=== PATIENT | male | born 1960 | race Hispanic/Latino ===

== ENCOUNTER 2020-12-06 10:04 | Emergency (ER) | payer SELFPAY ==
[2020-12-06] MEDS ORDERED: LORazepam 2 MG/ML VIAL IM PRN (11:44)
[2020-12-06] MEDS ORDERED: diphenhydrAMINE 50 MG/ML VIAL IM PRN (11:44)
[2020-12-06] MEDS ORDERED: LORazepam 1 MG TAB PO ONE (11:44)
[2020-12-06] MEDS ORDERED: HALOPERIDOL LACTATE 5 MG/1 ML INJ IM PRN (11:44)
--- NOTE | 2020-12-06 11:48 | Emergency Department Report ---
HPI - General Chief Complaint: Psych Time Seen by Provider: 12/06/20 11:11 - [facility] HPI: Room 12E The patient is a 60-year-old male present with a chief complaint of suicidal ideation. The patient states he has been off of his psychiatric medication and has wanted to hurt himself. When asked how long this been going on for the patient replies "a wild" but does not give a specific timeframe. Patient states the thoughts come and go. The patient states "I don't want to live anymore." When asked if he had done anything to harm himself the patient states he just had thoughts of wanting to jump off a building or in front of traffic. ED Past Medical Hx - Past Medical History Previous Medical History?: No Hx Psychiatric Treatment: Yes (Depression) - Surgical History Past Surgical History?: No - Family History Family history: no significant - Social History Smoking Status: Current Every Day Smoker (1.5 pack/day) Substance Use Type: Alcohol (Occasional), Marijuana ED Review of Systems ROS: Stated complaint: EVALUATION (THREATING) Other details as noted in HPI Constitutional: no symptoms reported Eyes: denies: eye pain ENT: denies: throat pain Respiratory: no symptoms reported Cardiovascular: denies: chest pain Endocrine: no symptoms reported Gastrointestinal: denies: abdominal pain Genitourinary: denies: dysuria Musculoskeletal: denies: back pain Neurological: denies: headache Psychiatric: depression, suicidal thoughts Physical Exam - Physical Exam Vital Signs: Vital Signs 12/06/20 10:29 Temperature 98.3 F Pulse Rate 87 Respiratory 18 Rate Blood Pressure 126/92 [Right] O2 Sat by Pulse 98 Oximetry Physical Exam: GENERAL: The patient is well-developed well-nourished male sitting in chair fidgeting but not appearing to be in acute distress. [] HEENT: Normocephalic. Atraumatic. Extraocular motions are intact. Patient has moist mucous membranes. NECK: Supple. Trachea midline CHEST/LUNGS: Clear to auscultation. There is no respiratory distress noted. HEART/CARDIOVASCULAR: Regular. There is no tachycardia. There is no gallop rub or murmur. ABDOMEN: Abdomen is soft, nontender. Patient has normal bowel sounds. There is no abdominal distention. SKIN: There is no rash. There is no edema. There is no diaphoresis. NEURO: The patient is awake, alert, and oriented. The patient is cooperative. The patient has no focal neurologic deficits. The patient has normal speech MUSCULOSKELETAL: There is no evidence of acute injury. ED Course Vital Signs 12/06/20 10:29 Temperature 98.3 F Pulse Rate 87 Respiratory 18 Rate Blood Pressure 126/92 [Right] O2 Sat by Pulse 98 Oximetry ED Medical Decision Making - Lab Data Result diagrams: 12/06/20 11:48 12/06/20 11:48 Laboratory Tests 12/06/20 12/06/20 12/06/20 11:48 11:48 11:48 WBC 9.3 RBC 4.73 Hgb 15.6 H Hct 44.6 MCV 94 MCH 33 H MCHC 35 H RDW 14.2 Plt Count 302 Lymph % (Auto) 28.7 [place] % (Auto) 3.7 Eos % (Auto) 2.2 Baso % (Auto) 1.0 Lymph # (Auto) 2.7 [place] # (Auto) 0.3 Eos # (Auto) 0.2 Baso # (Auto) 0.1 Seg Neutrophils % 64.4 Seg Neutrophils # 6.0 Sodium 138 Potassium 3.6 Chloride 100.7 Carbon Dioxide 24 Anion Gap 17 BUN 8 L Creatinine 0.9 Estimated GFR > 60 BUN/Creatinine Ratio 9 Glucose 125 H Calcium 8.8 Total Bilirubin 0.30 AST 16 ALT 12 Alkaline Phosphatase 67 Total Protein 7.0 Albumin 3.8 L Albumin/Globulin Ratio 1.2 Urine Color Urine Turbidity Urine pH Ur Specific [place] Urine Protein Urine Glucose (UA) Urine Ketones Urine Blood Urine Nitrite Urine Bilirubin Urine Urobilinogen Ur Leukocyte Esterase Urine WBC (Auto) Urine RBC (Auto) Urine Mucus Salicylates < 0.3 L Urine Opiates Screen Urine Methadone Screen Acetaminophen Ur Barbiturates Screen Ur Phencyclidine Scrn U Benzodiazepines Scrn Urine Cocaine Screen Plasma/Serum Alcohol 12/06/20 12/06/20 12/06/20 11:48 11:48 Unknown WBC RBC Hgb Hct MCV MCH MCHC RDW Plt Count Lymph % (Auto) [place] % (Auto) Eos % (Auto) Baso % (Auto) Lymph # (Auto) [place] # (Auto) Eos # (Auto) Baso # (Auto) Seg Neutrophils % Seg Neutrophils # Sodium Potassium Chloride Carbon Dioxide Anion Gap BUN Creatinine Estimated GFR BUN/Creatinine Ratio Glucose Calcium Total Bilirubin AST ALT Alkaline Phosphatase Total Protein Albumin Albumin/Globulin Ratio Urine Color Yellow Urine Turbidity Clear Urine pH 6.0 Ur Specific [place] 1.009 Urine Protein <15 mg/dl Urine Glucose (UA) Neg Urine Ketones Neg Urine Blood Neg Urine Nitrite Neg Urine Bilirubin Neg Urine Urobilinogen < 2.0 Ur Leukocyte Esterase Neg Urine WBC (Auto) < 1.0 Urine RBC (Auto) 1.0 Urine Mucus Few Salicylates Urine Opiates Screen Urine Methadone Screen Acetaminophen 5.0 L Ur Barbiturates Screen Ur Phencyclidine Scrn U Benzodiazepines Scrn Urine Cocaine Screen Plasma/Serum Alcohol 0.16 H 12/06/20 Unknown WBC RBC Hgb Hct MCV MCH MCHC RDW Plt Count Lymph % (Auto) [place] % (Auto) Eos % (Auto) Baso % (Auto) Lymph # (Auto) [place] # (Auto) Eos # (Auto) Baso # (Auto) Seg Neutrophils % Seg Neutrophils # Sodium Potassium Chloride Carbon Dioxide Anion Gap BUN Creatinine Estimated GFR BUN/Creatinine Ratio Glucose Calcium Total Bilirubin AST ALT Alkaline Phosphatase Total Protein Albumin Albumin/Globulin Ratio Urine Color Urine Turbidity Urine pH Ur Specific [place] Urine Protein Urine Glucose (UA) Urine Ketones Urine Blood Urine Nitrite Urine Bilirubin Urine Urobilinogen Ur Leukocyte Esterase Urine WBC (Auto) Urine RBC (Auto) Urine Mucus Salicylates Urine Opiates Screen Negative Urine Methadone Screen Negative Acetaminophen Ur Barbiturates Screen Negative Ur Phencyclidine Scrn Negative U Benzodiazepines Scrn Negative Urine Cocaine Screen Negative Plasma/Serum Alcohol - Differential Diagnosis Suicidal ideation Critical care attestation.: If time is entered above; I have spent that time in minutes in the direct care of this critically ill patient, excluding procedure time. ED Disposition Clinical Impression: Suicidal ideation Disposition: [id number]/TX-[id number] PSY HOSP/PSY UNIT Is pt being admited?: No Does the pt Need Aspirin: No Condition: Stable Referrals: PRIMARY CARE, [Primary Care Provider] - 3-5 Days Time of Disposition: 14:24 (Awaiting acceptance)
[2020-12-06 11:58] LABS: Basophils # (Auto) 0.1 K/mm3 (0.0-0.1); Eosinophils # (Auto) 0.2 K/mm3 (0.0-0.4); Eosinophils % (Auto) 2.2 % (0.0-4.3); Hematocrit 44.6 % (35.5-45.6); Hemoglobin 15.6 gm/dl (11.8-15.2); Lymphocytes # (Auto) 2.7 K/mm3 (1.2-5.4); Lymphocytes % (Auto) 28.7 % (13.4-35.0); Mean Corpuscular HGB Conc 35 % (32-34); Mean Corpuscular Volume 94 fl (84-94); Monocytes # (Auto) 0.3 K/mm3 (0.0-0.8); Monocytes % (Auto) 3.7 % (0.0-7.3); Platelet Count 302 K/mm3 (140-440); Red Blood Count 4.73 M/mm3 (3.65-5.03); Red Cell Distribution Width 14.2 % (13.2-15.2)
[2020-12-06 12:32] LABS: Bilirubin,Urine NEG (Negative); Blood,Urine NEG (Negative); Color,Urine Yellow (Yellow); Mucus,Urine FEW /HPF; Protein,Urine <15 mg/dL mg/dL (Negative); Urobilinogen,Urine < 2.0 mg/dL (<2.0); WBC,Urine < 1.0 /HPF (0.0-6.0)
[2020-12-06 12:33] LABS: Alanine Aminotransferase 12 units/L (7-56); Albumin 3.8 g/dL (3.9-5); BUN/Creatinine Ratio 9; Blood Urea Nitrogen 8 mg/dL (9-20); Calcium 8.8 mg/dL (8.4-10.2); Hemolysis Index 22
[2020-12-06 13:48] LABS: Benzodiazepines Screen,Urine Negative; Cocaine Screen,Urine Negative; Methadone Screen,Urine Negative; Opiate Screen,Urine Negative
[2020-12-06 14:51] LABS: Amphetamine Screen,Urine Positive
[2020-12-06 15:04] LABS: Cannabinoid Screen,Urine PRESUMPTIVE POSITIVE
[2020-12-07] MEDS ORDERED: traZODone 50 MG TAB PO ONE ×2 (02:28→02:31)
[2020-12-07 10:03] VITALS: BP 153/91
--- NOTE | 2020-12-07 11:04 | Consultation ---
History of Present Illness - Reason for Consult Consult date: 12/07/20 Reason for consult: MHE Requesting physician: BEN LYMAN - History of Present Psychiatric Illness Per ED Provider: The patient is a 60-year-old male present with a chief complaint of suicidal ideation. The patient states he has been off of his psychiatric medication and has wanted to hurt himself. When asked how long this been going on for the patient replies "a wild" but does not give a specific timeframe. Patient states the thoughts come and go. The patient states "I don't want to live anymore." When asked if he had done anything to harm himself the patient states he just had thoughts of wanting to jump off a building or in front of traffic. PSYCH HPI Patient is a 60-year-old single, currently unemployed and homeless male with past psychiatric history of depression and alcohol use disorder who presented to the ED intoxicated with chief complaint of suicidal ideation. Per patient he is currently living in a sober living facility, and had to leave the sober living facility because he had drunk alcohol which is against their rules. Patient reported he had evaluated well because he was having the urge to drink, so he could not stay because he was unable to get alcohol on the facility. Patient endorses that he drinks because he is depressed, and is depressed because he is currently unable to stay sober and he drinks, and has been unable to separate his depression and alcohol as an individualized treatment. Patient states that he wishes to go back to sober living facility but he was told that he needs to be medically cleared, is about to be sure is not going to withdrawals before he could come back. She admits to having family in [place], but states that his oldest daughter is leaving the state, and his mom just filed for divorce from her . PAST PSYCHIATRIC HISTORY Diagnoses: Depression Suicide attempts or Self-harm behavior: Yes Prior psychiatric hospitalizations: Yes Substance Abuse history: Alcohol Previous psychiatric medications tried: Noncompliant Outpatient treatment: None reported PAST MEDICAL HISTORY: None report Family Psychiatric History: None reported or documented SOCIAL HISTORY Marital Status: Single Living Arrangements: Home Employment Status: None Access to guns/weapons: None report Education: College drop History of Abuse: None report Legal History: Yes REVIEW OF SYSTEMS Constitutional: Negative for weight loss ENT: Negative for stridor Respiratory: Negative for cough or hemoptysis All other systems reviewed and are negative MENTAL STATUS EXAMINATION General Appearance and Behavior: Age appropriate, good hygiene, wearing appropriate clothes, good eye contact, cooperative polite with questioning. Cooperation: Participating/engaged Psychomotor Behavior: unremarkable and within normal limits Mood: "Not so good" Affect and affective range: congruent with mood Thought Process: Fluent/Logical, Thought Content: Within reality, Speech: Normal volume, Regular rate and rhythm, Intellectual Functioning: Average Suicidal Ideation: Denies SI Homicidal Ideation: Denies HI Impulse Control: Unimpaired Insight and Judgment: Normal insight and judgment, Memory: Normal, Attention: Normal, Orientation: Alert, oriented, Assessment and Plan - Psychiatric problem (1) Alcohol use disorder History of depression Current Visit: Yes Status: Acute Treatment Plan Discussed with social media project manager about plans for patient to return back to sober living facility, patient Walker reported this depends on the facility rules some have a 30-day readmission after alcohol use in violation of the policy. In this case patient states he can go back if he is medically MEDICATIONS: Risks, benefits and alternatives of medications discussed with the patient, questions answered and consent obtained from patient. PSYCHOTHERAPY: Supportive psychotherapy provided MEDICAL: Per primary team DELIRIUM PRECAUTIONS: Please re-orient patient frequently, keep lights on during the day, and minimize benzodiazepines and opiates as these medications could worsen patient's confusion. SPINDLE CARVER: DISPOSITION: Do Not Recommend acute inpatient psychiatric hospitalization at this time. Case discussed with Dr. Connelly who agrees with current disposition LEGAL STATUS: 1013 rescinded FOLLOW-UP: Will sign off Thank you for the consult. Please contact with any questions and/or concerns. Medications and Allergies Allergies Allergy/AdvReac Type Severity Reaction Status Date / Time No Known Allergies Allergy Unverified 12/06/20 12:55 Home Medications Medication Instructions Recorded Confirmed Last Taken Type Sertraline [Zoloft] 50 mg PO QDAY #30 tablet 12/07/20 Unknown Rx traZODone [Desyrel] 50 mg PO QHS #30 tab 12/07/20 Unknown Rx Active Meds: Active Medications Diphenhydramine HCl (Diphenhydramine 50 Mg/Ml Vial) 50 mg IM Q6H PRN PRN Reason: Agitation Haloperidol Lactate (Haloperidol Lactate 5 Mg/1 Ml Inj) 10 mg IM Q8H PRN PRN Reason: Agitation Lorazepam (Lorazepam 2 Mg/Ml Vial) 2 mg IM Q8H PRN PRN Reason: Agitation Last Admin: 12/07/20 03:59 Dose: 2 mg Documented by: Mental Status Exam - Vital signs Last Vital Signs Temp 97.9 F 12/07/20 09:00 Pulse 80 12/07/20 09:00 Resp 18 12/07/20 09:00 BP 153/91 12/07/20 09:00 Pulse Ox 97 12/07/20 09:00 Results Result Diagrams: 12/06/20 11:48 12/06/20 11:48 Abnormal lab results 12/06/20 12/06/20 12/06/20 Range/Units 11:48 11:48 11:48 Hgb 15.6 H (11.8-15.2) gm/dl MCH 33 H (28-32) pg MCHC 35 H (32-34) % BUN 8 L (9-20) mg/dL Glucose 125 H (75-100) mg/dL Albumin 3.8 L (3.9-5) g/dL Salicylates < 0.3 L (2.8-20.0) mg/dL Acetaminophen (10.0-30.0) ug/mL Plasma/Serum Alcohol (0-0.07) % 12/06/20 12/06/20 Range/Units 11:48 11:48 Hgb (11.8-15.2) gm/dl MCH (28-32) pg MCHC (32-34) % BUN (9-20) mg/dL Glucose (75-100) mg/dL Albumin (3.9-5) g/dL Salicylates (2.8-20.0) mg/dL Acetaminophen 5.0 L (10.0-30.0) ug/mL Plasma/Serum Alcohol 0.16 H (0-0.07) % All other labs normal. Assessment and Plan - Psychiatric problem (1) Alcohol use disorder Current Visit: Yes Status: Acute
== END 2020-12-07 15:38 | disposition home or self-care (01) ==
LOC: ED 10:04
DX: R45.851 Suicidal ideations (principal); Z20.822 Contact with and (suspected) exposure to COVID-19; F32.9 Major depressive disorder, single episode, unspecified; F17.200 Nicotine dependence, unspecified, uncomplicated; F12.10 Cannabis abuse, uncomplicated
CPT/HCPCS: 36415; 80053; 80307; 81001; 85025; 96372; 99284; J2060; U0003; 80320; G0480

== ENCOUNTER 2021-12-30 12:54 | Emergency (ER) | payer SELFPAY ==
[2021-12-30 15:22] LABS: Basophils % (Auto) 0.7 % (0.0-1.8); Eosinophils # (Auto) 0.1 K/mm3 (0.0-0.4); Eosinophils % (Auto) 1.8 % (0.0-4.3); Hematocrit 48.1 % (35.5-45.6); Hemoglobin 16.9 gm/dl (11.8-15.2); Lymphocytes # (Auto) 2.2 K/mm3 (1.2-5.4); Lymphocytes % (Auto) 44.1 % (13.4-35.0); Mean Corpuscular HGB Conc 35 % (32-34); Mean Corpuscular Volume 92 fl (84-94); Monocytes # (Auto) 0.4 K/mm3 (0.0-0.8); Monocytes % (Auto) 7.4 % (0.0-7.3); Platelet Count 197 K/mm3 (140-440); Red Blood Count 5.23 M/mm3 (3.65-5.03); Red Cell Distribution Width 14.7 % (13.2-15.2)
[2021-12-30 15:57] LABS: Alanine Aminotransferase 59 units/L (7-56); Albumin 4.8 g/dL (3.9-5); BUN/Creatinine Ratio 16; Blood Urea Nitrogen 13 mg/dL (9-20); Calcium 8.9 mg/dL (8.4-10.2); Hemolysis Index 6
[2021-12-31] MEDS ORDERED: THIAMINE 100 MG, FOLIC ACID 1 MG, MULTIPLE VITAMIN INJ, ADULT 10 ML in SODIUM CHLORIDE ... IV ONE (03:21)
[2021-12-31] MEDS ORDERED: SODIUM CHLORIDE 0.9% 1000 ML 1,000 ML IV ONE (03:22)
--- NOTE | 2021-12-31 03:26 | Emergency Department Report ---
ED Alcohol HPI - General Chief Complaint: Alcohol Stated Complaint: ETOH Time Seen by Provider: 12/31/21 02:56 Source: EMS Mode of arrival: Stretcher Limitations: No Limitations - History of Present Illness Initial Comments: 61-year-old alcoholic male who presents wanting detox. Patient reports last alcohol drink few hours ago. Denies any history of DT. Patient denies any chest pain or palpitation. Patient denies any other modifying or associated factors. - Related Data Previous Rx's Medication Instructions Recorded Last Taken Type Sertraline [Zoloft] 50 mg PO QDAY #30 tablet 12/07/20 Unknown Rx traZODone [Desyrel] 50 mg PO QHS #30 tab 12/07/20 Unknown Rx Allergies Allergy/AdvReac Type Severity Reaction Status Date / Time No Known Allergies Allergy Verified 12/31/21 11:39 ED Review of Systems ROS: Stated complaint: ETOH Other details as noted in HPI Comment: All other systems reviewed and negative Neurological: other (alcohol intoxication ) ED Past Medical Hx - Past Medical History Hx Psychiatric Treatment: Yes (Depression) - Social History Smoking Status: Current Every Day Smoker (1.5 pack/day) Substance Use Type: Alcohol (Occasional), Marijuana - Medications Home Medications: Home Medications Medication Instructions Recorded Confirmed Last Taken Type Sertraline [Zoloft] 50 mg PO QDAY #30 tablet 12/07/20 12/31/21 Unknown Rx traZODone [Desyrel] 50 mg PO QHS #30 tab 12/07/20 12/31/21 Unknown Rx ED Physical Exam - General Limitations: No Limitations General appearance: alert, in no apparent distress, appears intoxicated - Head Head exam: Present: normal inspection - Eye Eye exam: Present: normal appearance Pupils: Present: normal accommodation - ENT ENT exam: Present: normal orophraynx, mucous membranes moist - Neck Neck exam: Present: normal inspection. Absent: tenderness, meningismus - Respiratory Respiratory exam: Present: normal lung sounds bilaterally. Absent: respiratory distress, accessory muscle use - Cardiovascular Cardiovascular Exam: Present: regular rate, normal rhythm, normal heart sounds - GI/Abdominal GI/Abdominal exam: Present: soft, normal bowel sounds. Absent: tenderness - Back Exam Back exam: Present: normal inspection - Neurological Exam Neurological exam: Present: alert, oriented X3 - Psychiatric Psychiatric exam: Present: normal affect, normal mood - Skin Skin exam: Present: warm, normal color ED Course Vital Signs 12/30/21 12/30/21 12/31/21 13:06 14:53 02:21 Temperature 98.7 F Pulse Rate 78 95 H 80 Respiratory 18 17 20 Rate Blood Pressure Blood Pressure 134/85 127/77 [Left] O2 Sat by Pulse 97 99 93 Oximetry 12/31/21 12/31/21 11:38 12:12 Temperature 98.8 F Pulse Rate 83 Respiratory 20 Rate Blood Pressure 149/89 Blood Pressure 128/75 [Left] O2 Sat by Pulse 98 97 Oximetry - Reevaluation(s) Reevaluation #1: 12/31/21 03:28 here with alcohol intoxication-- will go ahead and hydrate with banana bag and ivf ns 1L bolus x 1-- and order routine labs -- Reevaluation #2: 12/31/21 06:03 Pt is signed to Dr Petersen while getting his banana. Labs reviewed with elevated H&H 16.9/48.1 likely as a result of COPD and smoking, also noted with slightly elevated AST/ALT 58/59 but normal T bili likely as a result of his chronic alcohol-- pt is lying down on his bed comfortable getting is fluid. ED Medical Decision Making - Lab Data Result diagrams: 12/30/21 15:02 12/30/21 15:02 Critical care attestation.: If time is entered above; I have spent that time in minutes in the direct care of this critically ill patient, excluding procedure time. ED Disposition Clinical Impression: Alcohol intoxication Qualifiers: Complication of substance-induced condition: with unspecified complication Qualified Code(s): F10.929 - Alcohol use, unspecified with intoxication, unspecified Disposition: 01 HOME / SELF CARE / HOMELESS Is pt being admited?: No Does the pt Need Aspirin: No Condition: Stable Additional Instructions: Follow up with the [facility] in 1 - 2 days (See the address and phone # below). Return to the ER if your symptoms worsen. Address: [address] [place] [id number] Referrals: PRIMARY CARE, [Primary Care Provider] - 3-5 Days
[2021-12-31] MEDS ORDERED: ONDANSETRON 4 MG/2 ML INJ IV ONE (11:46)
--- NOTE | 2021-12-31 11:53 | Event Note ---
Date: 12/31/21 (Addendum) Patient care transferred to pa from Dr. Moreira. Patient here 2/2 alcohol abuse and intoxicated. Seeking help. Denies SI, HI, hallucinations. No delusions on exam. No signs of withdrawals. Patient had been seen drinking more while in the ER. ED Medical Decision Making - Lab Data Result diagrams: 12/30/21 15:02 12/30/21 15:02 Laboratory Tests 12/30/21 12/30/21 12/31/21 15:02 15:02 03:44 WBC 5.0 RBC 5.23 H Hgb 16.9 H Hct 48.1 H MCV 92 MCH 32 MCHC 35 H RDW 14.7 Plt Count 197 Lymph % (Auto) 44.1 H [place] % (Auto) 7.4 H Eos % (Auto) 1.8 Baso % (Auto) 0.7 Lymph # (Auto) 2.2 [place] # (Auto) 0.4 Eos # (Auto) 0.1 Baso # (Auto) 0.0 Seg Neutrophils % 46.0 Seg Neutrophils # 2.3 Sodium 140 Potassium 3.7 Chloride 97.6 L Carbon Dioxide 27 Anion Gap 19 BUN 13 Creatinine 0.8 Estimated GFR > 60 BUN/Creatinine Ratio 16 Glucose 130 H Calcium 8.9 Total Bilirubin 0.30 AST 58 H ALT 59 H Alkaline Phosphatase 87 Total Protein 7.1 Albumin 4.8 Albumin/Globulin Ratio 2.1 TSH 0.664 Salicylates Acetaminophen Plasma/Serum Alcohol 12/31/21 12/31/21 12/31/21 03:44 03:44 03:44 WBC RBC Hgb Hct MCV MCH MCHC RDW Plt Count Lymph % (Auto) [place] % (Auto) Eos % (Auto) Baso % (Auto) Lymph # (Auto) [place] # (Auto) Eos # (Auto) Baso # (Auto) Seg Neutrophils % Seg Neutrophils # Sodium Potassium Chloride Carbon Dioxide Anion Gap BUN Creatinine Estimated GFR BUN/Creatinine Ratio Glucose Calcium Total Bilirubin AST ALT Alkaline Phosphatase Total Protein Albumin Albumin/Globulin Ratio TSH Salicylates < 0.3 L Acetaminophen 5.0 L Plasma/Serum Alcohol 0.39 H - Medical Decision Making Patient with GCS 15/15 @ 12:00 noon. Patient able to ambulate without support. Will refer patient to outpatient alcohol dependence treatment center. IMPRESSION: 1. Alcohol intoxication ED Disposition Disposition: 01 HOME / SELF CARE / HOMELESS Is pt being admited?: No Does the pt Need Aspirin: No Condition: Stable Additional Instructions: Follow up with the [facility] in 1 - 2 days (See the address and phone # below). Return to the ER if your symptoms worsen. Address: [address] [place] [id number] Referrals: PRIMARY CARE, [Primary Care Provider] - 3-5 Days
[2021-12-31 12:14] VITALS: BP 149/89
== END 2021-12-31 12:45 | disposition home or self-care (01) ==
LOC: ED 12:54
DX: F10.129 Alcohol abuse with intoxication, unspecified (principal); F32.9 Major depressive disorder, single episode, unspecified; F17.200 Nicotine dependence, unspecified, uncomplicated; Z72.89 Other problems related to lifestyle; Z79.899 Other long term (current) drug therapy; Y90.9 Presence of alcohol in blood, level not specified
CPT/HCPCS: 36415; 80053; 84443; 85025; 96361; 96365; 96366; 96375; 99284; J2405; J3411; J3490; J7030; 80320; G0480

== ENCOUNTER 2022-03-01 08:45 | Emergency (ER) | payer SELFPAY ==
[2022-03-01] MEDS ORDERED: THIAMINE 200 MG/2 ML VIAL IM STA (09:37)
[2022-03-01] MEDS ORDERED: LORazepam 2 MG/ML VIAL IV ONE (09:45)
[2022-03-01] MEDS ORDERED: SODIUM CHLORIDE 0.9% 1000 ML 1,000 ML IV ONE (09:46)
[2022-03-01] MEDS: FOLIC ACID 1 MG TAB PO STA (09:51)
[2022-03-01 10:35] LABS: Basophils % (Auto) 0.7 % (0.0-1.8); Eosinophils % (Auto) 0.9 % (0.0-4.3); Hematocrit 45.4 % (35.5-45.6); Hemoglobin 15.5 gm/dl (11.8-15.2); Lymphocytes # (Auto) 1.2 K/mm3 (1.2-5.4); Lymphocytes % (Auto) 28.7 % (13.4-35.0); Mean Corpuscular HGB Conc 34 % (32-34); Mean Corpuscular Volume 94 fl (84-94); Monocytes # (Auto) 0.5 K/mm3 (0.0-0.8); Monocytes % (Auto) 10.8 % (0.0-7.3); Platelet Count 170 K/mm3 (140-440); Red Blood Count 4.82 M/mm3 (3.65-5.03); Red Cell Distribution Width 16.2 % (13.2-15.2)
[2022-03-01] MEDS ORDERED: FAMOTIDINE 20 MG/2 ML INJ IV ONE (10:47)
[2022-03-01] MEDS ORDERED: ONDANSETRON 4 MG/2 ML INJ IV ONE (10:47)
[2022-03-01 10:59] LABS: Alanine Aminotransferase 96 units/L (7-56); Albumin 4.4 g/dL (3.9-5); BUN/Creatinine Ratio 9; Blood Urea Nitrogen 7 mg/dL (9-20); Calcium 9.1 mg/dL (8.4-10.2); Hemolysis Index 3
--- NOTE | 2022-03-01 11:22 | XRay Report ---
CHEST 1 VIEW 03/01/2022 10:07 AM INDICATION / CLINICAL INFORMATION: weakness, cough, alcohol withdrawal. COMPARISON: None available. FINDINGS: SUPPORT DEVICES: None. HEART / MEDIASTINUM: No significant abnormality. LUNGS / PLEURA: Lung volumes are reduced. No other significant pulmonary abnormality. No significant pleural effusion. No pneumothorax. ADDITIONAL FINDINGS: No significant additional findings. IMPRESSION: 1. No acute abnormality of the chest. Signer Name: Pedro Ross MD Signed: 03/01/2022 11:17 AM Workstation Name: [id number]
[2022-03-01] MEDS ORDERED: chlordiazePOXIDE 25 MG CAP PO ONE (12:55)
--- NOTE | 2022-03-01 13:15 | Emergency Department Report ---
ED Alcohol HPI - General Chief Complaint: Alcohol Stated Complaint: SARAH Time Seen by Provider: 03/01/22 09:31 Source: patient, EMS Mode of arrival: Stretcher Limitations: No Limitations - History of Present Illness MD Complaint: alcohol withdrawal Time Since Last Drink: 800 Chronic Alcohol Use: Yes Previous Visits for Alcohol Intoxication?: Yes Recent Trauma: No Associated Symptoms: nausea Treatments Prior to Arrival: other (pt drank alcohol prior to arrival) - Related Data Previous Rx's Medication Instructions Recorded Last Taken Type Sertraline [Zoloft] 50 mg PO QDAY #30 tablet 12/07/20 Unknown Rx traZODone [Desyrel] 50 mg PO QHS #30 tab 12/07/20 Unknown Rx Ondansetron [Zofran Odt] 4 mg PO Q8HR #12 tab.rapdis 03/01/22 Unknown Rx Allergies Allergy/AdvReac Type Severity Reaction Status Date / Time No Known Allergies Allergy Verified 12/31/21 11:39 ED Review of Systems ROS: Stated complaint: SARAH Other details as noted in HPI Comment: All other systems reviewed and negative Constitutional: no symptoms reported Eyes: as per HPI ENT: as per HPI Respiratory: no symptoms reported Cardiovascular: as per HPI Endocrine: see HPI Gastrointestinal: as per HPI, nausea Genitourinary: as per HPI Musculoskeletal: as per HPI Skin: as per HPI Neurological: as per HPI Psychiatric: as per HPI Hematological/Lymphatic: other ED Past Medical Hx - Past Medical History Previous Medical History?: No Hx Psychiatric Treatment: Yes (Depression) - Surgical History Past Surgical History?: No Hx Coronary Stent: No Hx Open Heart Surgery: No Hx Internal Defibrillator: No Hx Appendectomy: No Hx Breast Surgery: No (not applicable) - Family History Family history: no significant - Social History Smoking Status: Current Every Day Smoker Substance Use Type: Alcohol - Medications Home Medications: Home Medications Medication Instructions Recorded Confirmed Last Taken Type Sertraline [Zoloft] 50 mg PO QDAY #30 tablet 12/07/20 12/31/21 Unknown Rx traZODone [Desyrel] 50 mg PO QHS #30 tab 12/07/20 12/31/21 Unknown Rx Ondansetron [Zofran Odt] 4 mg PO Q8HR #12 tab.rapdis 03/01/22 Unknown Rx ED Physical Exam - General Limitations: No Limitations General appearance: alert, other (Adult male, strong smell of alcohol on breath, comfortable appearing, no drooling no stridor, disheveled) - Head Head exam: Present: atraumatic, normocephalic, normal inspection - Eye Eye exam: Present: normal appearance, PERRL, EOMI Pupils: Present: normal accommodation - ENT ENT exam: Present: normal exam, normal orophraynx, mucous membranes moist, normal external ear exam - Neck Neck exam: Present: normal inspection, full ROM - Respiratory Respiratory exam: Present: normal lung sounds bilaterally - Cardiovascular Cardiovascular Exam: Present: regular rate, normal rhythm, normal heart sounds - GI/Abdominal GI/Abdominal exam: Present: soft - exam: Present: normal inspection External exam: Present: normal external exam - Extremities Exam Extremities exam: Present: normal inspection, full ROM - Back Exam Back exam: Present: normal inspection - Neurological Exam Neurological exam: Present: alert, oriented X3, CN II-XII intact, normal gait, motor sensory deficit, other (No asterixis, no tremors, no tongue fasciculations) - Psychiatric Psychiatric exam: Present: normal affect, normal mood - Skin Skin exam: Present: warm, dry, intact ED Course Vital Signs 03/01/22 03/01/22 08:50 09:02 Temperature 99.5 F Pulse Rate 115 H Respiratory 18 Rate Blood Pressure 136/82 [Left] O2 Sat by Pulse 96 96 Oximetry - Reevaluation(s) Reevaluation #1: 03/01/22 15:07 Patient is comfortable appearing, asleep but easily arousable, no tongue fasciculations no tremors, patient has no evidence of active withdrawal, and no witnessed seizure-like activity, ED Medical Decision Making - Lab Data Result diagrams: 03/01/22 09:51 03/01/22 09:51 - EKG Data -: EKG Interpreted by Me EKG shows normal: sinus rhythm - EKG Data When compared to previous EKG there are: no significant change, changes noted Interpretation: normal EKG - Radiology Data Radiology results: report reviewed 62-year-old male presents for evaluation of alcohol withdrawal. Vitals reviewed. CIWA score obtained. Patient given Ativan and Librium as well as normal saline and multiple other medications. His symptoms completely resolved after this. Mental health consult placed to determine if patient is eligible for outpatient alcohol detox program. See patient's electronic health record for mental health consult impression and plan. Patient at this time does not meet criteria for inpatient admission given that he is currently asymptomatic and very well-appearing and throughout his observation for several hours he demonstrated no evidence of decompensation or evolving or persistent signs or symptoms of acute alcohol withdrawal. Outpatient resources provided to the patient to telephone upon discharge. Prior to discharge patient was given strict verbal and written return precautions. Patient verbalized understanding of the plan of care Critical care attestation.: If time is entered above; I have spent that time in minutes in the direct care of this critically ill patient, excluding procedure time. ED Disposition Clinical Impression: Alcohol withdrawal Disposition: HOME / SELF CARE / HOMELESS Is pt being admited?: No Does the pt Need Aspirin: No Condition: Stable Additional Instructions: Please follow-up with your primary care doctor soon as possible for reassessment. It is strongly advised that you discontinue using alcohol. It places you at risk for seizures and all other life-threatening health conditions. Drink plenty of fluids to stay hydrated. Take Zofran as needed for nausea. Observe your symptoms very carefully. Return to the nearest urgency department soon as possible if you develop severe headaches, vomiting, dizziness, vision changes, inability tolerate liquids or solids, or if any other new worrisome symptoms develop Prescriptions: Ondansetron [Zofran Odt] 4 mg PO Q8HR #12 tab.leonordis Referrals: KENNEDY HULL MD [Staff Physician] - 3-5 Days
[2022-03-01 15:42] VITALS: BP 117/84
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
[2022-03-02 00:51] LABS: Bilirubin,Urine NEG (Negative); Blood,Urine SM (Negative); Color,Urine Yellow (Yellow); Urobilinogen,Urine < 2.0 mg/dL (<2.0)
[2022-03-02 00:52] LABS: Mucus,Urine 1+ /HPF
[2022-03-02 01:01] LABS: Amphetamine Screen,Urine PRESUMPTIVE NEGATIVE; Benzodiazepines Screen,Urine PRESUMPTIVE NEGATIVE; Cannabinoid Screen,Urine PRESUMPTIVE POSITIVE; Cocaine Screen,Urine PRESUMPTIVE NEGATIVE; Methadone Screen,Urine PRESUMPTIVE NEGATIVE; Opiate Screen,Urine PRESUMPTIVE NEGATIVE
--- NOTE | 2022-03-02 14:49 | Progress Note ---
Subjective - Reason for Consult Reason for consult: Detox - Chief Complaint Chief complaint: SUBJECTIVE DATE OF SEEN: 03/02/2022 62 year old male presents to the ED the second time after having been seen yesterday in the ER and patient was said to have been discharged and came back again later. Patient states that "They discharged me" and he never left AMA. patient states that when he left the hospital he had another couple of drinks before coming back. Patient seen to be having tremors. Patient also states that " I want to kill myself right now". Patient denies any HI at this time. Patient will be admitted for inpatient psychiatric evaluation,and alcohol detox. GP History & Physical - History of Present Illness Date of admission: 03/01/22 Date of Examination: 03/01/22 Reason for Admission: Detox/Rehab Chief Complaint: ETOH History of Present Illness: Admission Note 62 year old presents to the ED with alcohol withdrawals. Patient states that " I am just trying to detox right now". Patient states that he had gone through the same process a few years ago. Patient denies any SI/HI at this time. Patient states that he had been on doxepine several years ago and not since then. Patient is a current smoker and also smokes marijuana "sometimes". HPI PAST PSYCHIATRIC HISTORY: Diagnoses:ETOH Suicide attempts or Self-harm behavior: No Prior psychiatric hospitalizations:Yes Substance Abuse history: Yes (Marijuana) Previous psychiatric medications tried: Doxepine Outpatient treatment: Yes PAST MEDICAL HISTORY: Family Psychiatric History None reported or documented SOCIAL HISTORY Marital Status: Single Living Arrangements: With Room mate Employment Status: Access to guns/weapons: Denies Education: History of Abuse: Legal History: REVIEW OF SYSTEMS Constitutional: Negative for weight loss ENT: Negative for stridor Respiratory: Negative for cough or hemoptysis All other systems reviewed and are negative Diagnoses: ETOH Treatment Plan Patient will be admitted for inpatient psychiatric evaluation,and alcohol detox The patient's behavior, mood, sleep and appetite will be closely monitored. Patient will be enrolled in individual and group therapeutic sessions and encouraged to attend. Patient will be provided with a safe and structured environment. Patient's physical health needs will be addressed by the Hospitalist. Hospitalist Consulted Labs including CBC, CMP, Lipid profile and Hemoglobin A1C ordered Social Assessment will be completed and the Host/Hostess Ground will work with patient and family to ensure a suitable and safe disposition Medication adjustment will be made as clinically indicated Usual Wellness Mosque/Preservation: - Start Trazodone 50 mg po QHS PRN The patient agreed on the treatment plan, understood the risk, benefit, alternative treatment, potential consequence of no treatment, and gave informed consent. Legal Status: Voluntary Reaction to Hospitalization: Accepting Medications and Allergies Allergies Allergy/AdvReac Type Severity Reaction Status Date / Time No Known Allergies Allergy Verified 12/31/21 11:39 Home Medications Medication Instructions Recorded Confirmed Last Taken Type Sertraline [Zoloft] 50 mg PO QDAY #30 tablet 12/07/20 12/31/21 Unknown Rx traZODone [Desyrel] 50 mg PO QHS #30 tab 12/07/20 12/31/21 Unknown Rx Ondansetron [Zofran Odt] 4 mg PO Q8HR #12 tab.rapdis 03/01/22 Unknown Rx Results - Results Labs/Vitals: Laboratory Last Values WBC 4.2 K/mm3 (4.5-11.0) L 03/01/22 09:51 RBC 4.82 M/mm3 (3.65-5.03) 03/01/22 09:51 Hgb 15.5 gm/dl (11.8-15.2) H 03/01/22 09:51 Hct 45.4 % (35.5-45.6) 03/01/22 09:51 MCV 94 fl (84-94) 03/01/22 09:51 MCH 32 pg (28-32) 03/01/22 09:51 MCHC 34 % (32-34) 03/01/22 09:51 RDW 16.2 % (13.2-15.2) H 03/01/22 09:51 Plt Count 170 K/mm3 (140-440) 03/01/22 09:51 Lymph % (Auto) 28.7 % (13.4-35.0) 03/01/22 09:51 [place] % (Auto) 10.8 % (0.0-7.3) H 03/01/22 09:51 Eos % (Auto) 0.9 % (0.0-4.3) 03/01/22 09:51 Baso % (Auto) 0.7 % (0.0-1.8) 03/01/22 09:51 Lymph # (Auto) 1.2 K/mm3 (1.2-5.4) 03/01/22 09:51 [place] # (Auto) 0.5 K/mm3 (0.0-0.8) 03/01/22 09:51 Eos # (Auto) 0.0 K/mm3 (0.0-0.4) 03/01/22 09:51 Baso # (Auto) 0.0 K/mm3 (0.0-0.1) 03/01/22 09:51 Seg Neutrophils % 58.9 % (40.0-70.0) 03/01/22 09:51 Seg Neutrophils # 2.5 K/mm3 (1.8-7.7) 03/01/22 09:51 Sodium 143 mmol/L (137-145) 03/01/22 09:51 Potassium 3.6 mmol/L (3.6-5.0) 03/01/22 09:51 Chloride 99.7 mmol/L (98-107) 03/01/22 09:51 Carbon Dioxide 27 mmol/L (22-30) 03/01/22 09:51 Anion Gap 20 mmol/L 03/01/22 09:51 BUN 7 mg/dL (9-20) L 03/01/22 09:51 Creatinine 0.8 mg/dL (0.8-1.3) 03/01/22 09:51 Estimated GFR > 60 ml/min 03/01/22 09:51 BUN/Creatinine Ratio 9 % 03/01/22 09:51 Glucose 113 mg/dL (75-100) H 03/01/22 09:51 Calcium 9.1 mg/dL (8.4-10.2) 03/01/22 09:51 Magnesium 2.00 mg/dL (1.7-2.3) 03/01/22 09:51 Total Bilirubin 0.40 mg/dL (0.1-1.2) 03/01/22 09:51 AST 159 units/L (5-40) H 03/01/22 09:51 ALT 96 units/L (7-56) H 03/01/22 09:51 Alkaline Phosphatase 73 units/L (35-129) 03/01/22 09:51 Total Protein 7.0 g/dL (6.3-8.2) 03/01/22 09:51 Albumin 4.4 g/dL (3.9-5) 03/01/22 09:51 Albumin/Globulin Ratio 1.7 % 03/01/22 09:51 Lipase 44 units/L (13-60) 03/01/22 09:51 Salicylates < 0.3 mg/dL (2.8-20.0) L 03/01/22 09:51 Acetaminophen 5.0 ug/mL (10.0-30.0) L 03/01/22 09:51 Plasma/Serum Alcohol 0.33 % (0-0.07) H 03/01/22 09:51 Last Vital Signs Temp 98.1 F 03/01/22 10:30 Pulse 86 03/01/22 15:40 Resp 18 03/01/22 15:40 BP 117/84 03/01/22 15:40 Pulse Ox 99 03/01/22 15:40 Physical Examination - Constitutional Vitals: Vital Signs Temp Pulse Resp BP Pulse Ox 98.1 F 86 18 117/84 99 03/01/22 10:30 03/01/22 15:40 03/01/22 15:40 03/01/22 15:40 03/01/22 15:40 Temperature -Last 24 Hours Temperature 98.1 F Temperature 99.5 F Mental Status Exam - Vital signs Last Vital Signs Temp 98.1 F 03/01/22 10:30 Pulse 86 03/01/22 15:40 Resp 18 03/01/22 15:40 BP 117/84 03/01/22 15:40 Pulse Ox 99 03/01/22 15:40 Physician Certification - Certification Statement Physician Certification Statement: This is an acknowledgement statement that RADHA CHICAS is a 62 year old M who requires inpatient psychiatric admission for treatment which could reasonably be expected to improve the patient's condition for Estimated period of time patient will need to remain in the hospital: [ ] Plan for post-hospital care: [ ] Mental Status Exam - Vital signs Last Vital Signs Temp 98.1 F 03/01/22 10:30 Pulse 86 03/01/22 15:40 Resp 18 03/01/22 15:40 BP 117/84 03/01/22 15:40 Pulse Ox 99 03/01/22 15:40
--- NOTE | 2022-03-02 19:44 | Electrocardiograph Report ---
[facility] Test Date: 2022-03-01 Test Time: 10:56:49 Pat Name: RADHA CHICAS Department: Room: Gender: M Web Services Developer: [birth year] : 1960 Requested By: LEANDRA LEY Order Number: [id number] Reading MD: Philip Stafford Measurements Intervals [place] Rate: 87 P: 63 MT: 166 QRS: -17 QRSD: 95 T: 60 QT: 396 QTc: 477 Interpretive Statements Sinus rhythm No previous ECG available for comparison Electronically Signed On 03-02-2022 19:44:28 EDT by Philip Stafford
== END 2022-03-01 18:19 | disposition home or self-care (01) ==
LOC: ED 08:45
DX: F10.239 Alcohol dependence with withdrawal, unspecified (principal); F17.200 Nicotine dependence, unspecified, uncomplicated; Z79.899 Other long term (current) drug therapy
CPT/HCPCS: 36415; 71045; 80053; 80307; 81001; 83690; 83735; 85025; 93005; 96361; 96372; 96374; 99284; J2060; J3411; J7030; 80320; G0480

== ENCOUNTER 2022-03-01 23:39 | Emergency (ER) | payer SELFPAY ==
[2022-03-02] MEDS ORDERED: ONDANSETRON 4 MG/2 ML INJ IV ONE (00:44)
[2022-03-02] MEDS ORDERED: SODIUM CHLORIDE 0.9% 1000 ML 1,000 ML IV ONE (00:45)
--- NOTE | 2022-03-02 01:18 | Emergency Department Report ---
ED Alcohol HPI - General Chief Complaint: Alcohol Stated Complaint: ALCOHOL WITHDRAW Time Seen by Provider: 03/02/22 01:08 Source: patient Mode of arrival: Ambulatory Limitations: No Limitations - History of Present Illness Initial Comments: 62-year-old male with a history of alcoholism and depression presents to the hospital requesting alcohol detox. Patient was seen earlier today and discharged. As per medical record review Patient was triaged at 8:50 AM complaining of alcohol withdrawals and received Ativan at 9:45 AM based on CIWA score. Patient's alcohol level at 9:51 AM was 0.33 indicating acute intoxication and not withdrawal despite CIWA score. Other lab work without any significant abnormality. Patient was observed for several hours in the ED and received psychiatric consultation for for inpatient detox. at 12:55 PM patient received Librium and was subsequently discharged at 15:42. ED provider note indicates that patient does not require inpatient admission at this time Psychiatric nurse practitioner note was not placed in the chart until 19:36 several hours after patient was discharged and states that patient meets crigenet garza for inpatient admission and to start trazodone nightly. Patient now represents to the hospital at 23:39 complaining of alcohol withdrawal symptoms. Patient does admit to having 2 beers since he left the department this afternoon. He states he overall feels bad. He feels tremulous, has a headache, having difficulty completing his thought, and nausea. Nurse reported that he witnessed patient vomiting but patient denies vomiting. He is alert and oriented x3. He states that he felt bad when he was discharged earlier today Patient now complains of suicidal ideation with plan to jump off a bridge. He has been suicidal for "a long time". He is also homeless - Related Data Previous Rx's Medication Instructions Recorded Last Taken Type Sertraline [Zoloft] 50 mg PO QDAY #30 tablet 12/07/20 Unknown Rx traZODone [Desyrel] 50 mg PO QHS #30 tab 12/07/20 Unknown Rx Ondansetron [Zofran Odt] 4 mg PO Q8HR #12 tab.rapdis 03/01/22 Unknown Rx Allergies Allergy/AdvReac Type Severity Reaction Status Date / Time No Known Allergies Allergy Verified 12/31/21 11:39 ED Review of Systems ROS: Stated complaint: ALCOHOL WITHDRAW Other details as noted in HPI ED Past Medical Hx - Past Medical History Previous Medical History?: Yes Hx Psychiatric Treatment: Yes (Depression) Additional medical history: Alcoholism - Surgical History Past Surgical History?: No Hx Coronary Stent: No Hx Open Heart Surgery: No Hx Internal Defibrillator: No Hx Appendectomy: No Hx Breast Surgery: (not applicable) - Social History Smoking Status: Current Every Day Smoker Substance Use Type: None - Medications Home Medications: Home Medications Medication Instructions Recorded Confirmed Last Taken Type Sertraline [Zoloft] 50 mg PO QDAY #30 tablet 12/07/20 12/31/21 Unknown Rx traZODone [Desyrel] 50 mg PO QHS #30 tab 12/07/20 12/31/21 Unknown Rx Ondansetron [Zofran Odt] 4 mg PO Q8HR #12 tab.rapdis 03/01/22 Unknown Rx ED Physical Exam - General Limitations: No Limitations - Other Other exam information: General: No acute distress Head: Atraumatic Eyes: normal appearance ENT: Moist mucous membranes Neck: Normal appearance, no midline tenderness Chest: Clear to auscultation bilaterally CV: Regular rate and rhythm Abdomen: Soft, normal bowel sounds, nontender, nondistended, no rebound or guarding Back: Normal inspection Extremity: Normal inspection, full range of motion Neuro: Alert O x 3, slurred speech, no facial asymmetry, no focal deficit. No tremor noted Psych: Appropriate behavior Skin: No rash ED Course Vital Signs 03/01/22 03/02/22 03/02/22 23:39 00:15 00:22 Temperature 98 F 98.8 F Pulse Rate 98 H 93 H Respiratory 18 18 18 Rate Blood Pressure 156/86 Blood Pressure 106/77 [Left] O2 Sat by Pulse 97 91 94 Oximetry 03/02/22 03/02/22 03/02/22 02:57 02:59 03:01 Temperature 98.9 F Pulse Rate 105 H 89 99 H Respiratory 13 14 21 Rate Blood Pressure 116/70 Blood Pressure 116/70 [Left] O2 Sat by Pulse 95 91 Oximetry 03/02/22 03/02/22 03/02/22 03:15 03:31 03:45 Temperature Pulse Rate 97 H 92 H Respiratory 18 14 Rate Blood Pressure 116/70 104/50 104/50 Blood Pressure [Left] O2 Sat by Pulse 95 89 92 Oximetry 03/02/22 03/02/22 04:01 04:05 Temperature Pulse Rate 92 H Respiratory 12 Rate Blood Pressure 110/51 Blood Pressure 110/51 [Left] O2 Sat by Pulse 84 94 Oximetry - Reevaluation(s) Reevaluation #1: 03/02/22 01:59 Patient's alcohol level is 0.32 which is not consistent with acute alcohol withdrawal. Patient does not have any concrete findings of alcohol withdrawal such as tremors, hypotension, or tachycardia. He scores high for subjective symptoms ED Medical Decision Making - Lab Data Result diagrams: 03/02/22 00:59 03/02/22 00:59 Lab Results 03/02/22 03/02/22 03/02/22 Range/Units 00:46 00:59 00:59 WBC 5.5 (4.5-11.0) K/mm3 RBC 4.66 (3.65-5.03) M/mm3 Hgb 14.8 (11.8-15.2) gm/dl Hct 44.5 (35.5-45.6) % MCV 96 H (84-94) fl MCH 32 (28-32) pg MCHC 33 (32-34) % RDW 16.0 H (13.2-15.2) % Plt Count 148 (140-440) K/mm3 Lymph % (Auto) 31.7 (13.4-35.0) % [place] % (Auto) 8.7 H (0.0-7.3) % Eos % (Auto) 0.9 (0.0-4.3) % Baso % (Auto) 0.6 (0.0-1.8) % Lymph # (Auto) 1.7 (1.2-5.4) K/mm3 [place] # (Auto) 0.5 (0.0-0.8) K/mm3 Eos # (Auto) 0.0 (0.0-0.4) K/mm3 Baso # (Auto) 0.0 (0.0-0.1) K/mm3 Seg Neutrophils % 58.1 (40.0-70.0) % Seg Neutrophils # 3.2 (1.8-7.7) K/mm3 Sodium 145 (137-145) mmol/L Potassium 3.8 (3.6-5.0) mmol/L Chloride 102.0 (98-107) mmol/L Carbon Dioxide 28 (22-30) mmol/L Anion Gap 19 mmol/L BUN 7 L (9-20) mg/dL Creatinine 0.9 (0.8-1.3) mg/dL Estimated GFR > 60 ml/min BUN/Creatinine Ratio 8 % Glucose 135 H (75-100) mg/dL Calcium 8.7 (8.4-10.2) mg/dL Total Bilirubin 0.40 (0.1-1.2) mg/dL AST 134 H (5-40) units/L ALT 86 H (7-56) units/L Alkaline Phosphatase 71 (35-129) units/L Ammonia (25-60) umol/L Total Protein 6.3 (6.3-8.2) g/dL Albumin 4.1 (3.9-5) g/dL Albumin/Globulin Ratio 1.9 % Lipase 49 (13-60) units/L Plasma/Serum Alcohol 0.32 H (0-0.07) % /06/14 Range/Units 02:22 WBC (4.5-11.0) K/mm3 RBC (3.65-5.03) M/mm3 Hgb (11.8-15.2) gm/dl Hct (35.5-45.6) % MCV (84-94) fl MCH (28-32) pg MCHC (32-34) % RDW (13.2-15.2) % Plt Count (140-440) K/mm3 Lymph % (Auto) (13.4-35.0) % [place] % (Auto) (0.0-7.3) % Eos % (Auto) (0.0-4.3) % Baso % (Auto) (0.0-1.8) % Lymph # (Auto) (1.2-5.4) K/mm3 [place] # (Auto) (0.0-0.8) K/mm3 Eos # (Auto) (0.0-0.4) K/mm3 Baso # (Auto) (0.0-0.1) K/mm3 Seg Neutrophils % (40.0-70.0) % Seg Neutrophils # (1.8-7.7) K/mm3 Sodium (137-145) mmol/L Potassium (3.6-5.0) mmol/L Chloride (98-107) mmol/L Carbon Dioxide (22-30) mmol/L Anion Gap mmol/L BUN (9-20) mg/dL Creatinine (0.8-1.3) mg/dL Estimated GFR ml/min BUN/Creatinine Ratio % Glucose (75-100) mg/dL Calcium (8.4-10.2) mg/dL Total Bilirubin (0.1-1.2) mg/dL AST (5-40) units/L ALT (7-56) units/L Alkaline Phosphatase (35-129) units/L Ammonia 33.0 (25-60) umol/L Total Protein (6.3-8.2) g/dL Albumin (3.9-5) g/dL Albumin/Globulin Ratio % Lipase (13-60) units/L Plasma/Serum Alcohol (0-0.07) % - Radiology Data Radiology results: report reviewed CT head without contrast INDICATION : Alcoholic, headache. TECHNIQUE: Axial imaging performed from the skull apex through the skull base without the use of contrast. All CT scans at this location are performed using CT dose reduction for ALARA by means of automated exposure control. COMPARISON: None FINDINGS: Parenchyma: No mass, hemorrhage or acute stroke. Chronic small infarct ortiz- white junction right frontal region. Ventricles: Ventricles are normal in size and appear symmetric. Soft tissues: Soft tissues including the orbits appear normal. Bones: No acute osseous abnormality. Sinuses: Mild mucosal thickening diffusely. Aplastic frontal sinuses. IMPRESSION: 1. Mild sinus disease. 2. Small chronic infarct right frontal region. - Medical Decision Making 62-year-old alcoholic presents to the hospital acutely intoxication once again claiming withdrawals and asking for Ativan. Patient seems to have a pattern of doing the same. Patient was agitated during ED stay and acutely intoxicated and received Haldol. ED work-up including labs and CT imaging did not reveal any acute abnormality. Urine collection pending. As per nurse practitioner note yesterday patient was going to be treated for alcohol detox tox. Today patient is now claiming suicidal ideation therefore [id number] has been signed and patient is awaiting repeat psychiatric evaluation. CIWA protocol has been ordered to be initiated once patient is awake. Critical Care Time: No Critical care attestation.: If time is entered above; I have spent that time in minutes in the direct care of this critically ill patient, excluding procedure time. ED Disposition Clinical Impression: Acute alcohol intoxication, Suicidal ideations Disposition: [address] [place] [address] Is pt being admited?: No Does the pt Need Aspirin: No Condition: Stable Referrals: ANNABEL LOWE MD [Primary Care Provider] - 3-5 Days
[2022-03-02 01:20] LABS: Basophils % (Auto) 0.6 % (0.0-1.8); Eosinophils % (Auto) 0.9 % (0.0-4.3); Hematocrit 44.5 % (35.5-45.6); Hemoglobin 14.8 gm/dl (11.8-15.2); Lymphocytes # (Auto) 1.7 K/mm3 (1.2-5.4); Lymphocytes % (Auto) 31.7 % (13.4-35.0); Mean Corpuscular HGB Conc 33 % (32-34); Mean Corpuscular Volume 96 fl (84-94); Monocytes # (Auto) 0.5 K/mm3 (0.0-0.8); Monocytes % (Auto) 8.7 % (0.0-7.3); Platelet Count 148 K/mm3 (140-440); Red Blood Count 4.66 M/mm3 (3.65-5.03)
[2022-03-02 01:35] LABS: Alanine Aminotransferase 86 units/L (7-56); Albumin 4.1 g/dL (3.9-5); BUN/Creatinine Ratio 8; Blood Urea Nitrogen 7 mg/dL (9-20); Calcium 8.7 mg/dL (8.4-10.2); Hemolysis Index 27
[2022-03-02] MEDS ORDERED: THIAMINE 100 MG, FOLIC ACID 1 MG, MULTIPLE VITAMIN INJ, ADULT 10 ML in SODIUM CHLORIDE ... IV ONE (01:44)
--- NOTE | 2022-03-02 02:26 | Cat Scan Report ---
CT head without contrast INDICATION : Alcoholic, headache. TECHNIQUE: Axial imaging performed from the skull apex through the skull base without the use of con trast. All CT scans at this location are performed using CT dose reduction for ALARA by means of aut omated exposure control. COMPARISON: None FINDINGS: Parenchyma: No mass, hemorrhage or acute stroke. Chronic small infarct ortiz-white junction right fron warren region. Ventricles: Ventricles are normal in size and appear symmetric. Soft tissues: Soft tissues including the orbits appear normal. Bones: No acute osseous abnormality. Sinuses: Mild mucosal thickening diffusely. Aplastic frontal sinuses. IMPRESSION: 1. Mild sinus disease. 2. Small chronic infarct right frontal region. Signer Name: Milton Blake MD Signed: 03/02/2022 2:22 AM Workstation Name: [id number]
[2022-03-02] MEDS ORDERED: HALOPERIDOL LACTATE 5 MG/1 ML INJ IM ONE (02:48)
[2022-03-02] MEDS ORDERED: LORazepam 2 MG TAB PO PRN (04:56)
[2022-03-02] MEDS ORDERED: SODIUM CHLORIDE 0.9% 1000 ML 1,000 ML ONE (07:16)
[2022-03-02] MEDS ORDERED: DEXTROSE 50% IN WATER (25GM) 50 ML SYRINGE IV PRN (15:24)
[2022-03-02] MEDS ORDERED: LACTATED RINGERS 2,000 ML IV ONE (15:24)
[2022-03-02] MEDS ORDERED: ONDANSETRON 4 MG ODT TAB PO PRN (15:26)
--- NOTE | 2022-03-02 15:26 | Event Note ---
Date: 03/02/22 The patient was evaluated in the emergency department for symptoms described in the history of present illness. He/she was evaluated in the context of the global COVID-19 pandemic, which necessitated consideration that the patient might be at risk for infection with the virus that causes COVID-19. Institutional protocols and algorithms that pertain to the evaluation of patients at risk for COVID-19 are in a state of rapid change based on information released by regulatory bodies including the CDC and federal and state organizations. These policies and algorithms were followed during the patient's care in the emergency department. Please note that these policies, procedures and recommendations changed on a rapid basis. Laboratory studies, vital signs, nursing documentation, ER documentation, and psychiatric documentation are reviewed and appreciated. Nursing team reports no acute events this morning or concerns. The patient is awake and ambulating and not in any acute distress. Mildly low blood pressure likely secondary to volume depletion, likely secondary to patient being homeless and undomiciled The patient was deemed medically suitable for psychiatric disposition and placement during his initial ER evaluation. The patient continues to remain medically suitable for psychiatric placement and disposition. He is currently pending psychiatric placement. We will order additional IV fluid. We will also order daily multivitamin. We will also order Accu-Cheks every 6 hours, As well as as needed dextrose. Alcohol withdrawal protocol orders have already been initiated. Patient has not provided a urine sample or COVID swab as of yet. The emergency room will follow along as the patient provides these. Please note that this patient is most likely malingering for the purposes of secondary gain. Placing this patient on a 1013 hold and involuntary confinement may result in the patient presented to the emergency room to seek food, alf, and necessities, when faced with adverse and challenging situations, and may serve to reinforce maladaptive coping mechanisms. However, I will ultimately defer to the psychiatric team in this arena. This patient remains medically suitable for psychiatric disposition and placement at this time.
--- NOTE | 2022-03-02 22:48 | Emergency Department Report ---
Blank Doc - Documentation Documentation: It appears that patient did not receive psych assessment today as ordered. Th ere is not a psychiatric note documented in the chart
[2022-03-03] MEDS ORDERED: ACETAMINOPHEN 325 MG TAB PO ONE (09:42)
[2022-03-03] MEDS: MULTIVITAMINS ,THERAPEUTIC TAB PO SCH (09:48)
[2022-03-03] MEDS: LORazepam 2 MG TAB PO PRN (13:07)
--- NOTE | 2022-03-03 17:33 | Progress Note ---
Subjective - Reason for Consult Reason for consult: ETOH - Chief Complaint Chief complaint: SUBJECTIVE DATE SEEN:03/03/2022 Patient seen today in the ER. Patient state that " I don't know how i feel, i just want to get to the crisis center". Patient seen lying on his bed, states that he still having SI thoughts but denies HI at this time. Patient also admits to eating good, but not sleeping good. Patients CIWA as at this interview was 10. Mental Status Exam - Vital signs Last Vital Signs Temp 98.0 F 03/03/22 16:21 Pulse 74 03/03/22 16:21 Resp 15 03/03/22 16:21 BP 153/72 03/03/22 16:21 Pulse Ox 96 03/03/22 16:21
[2022-03-04] MEDS ORDERED: IBUPROFEN 600 MG TAB PO ONE ×2 (00:49→15:06)
[2022-03-04 05:16] LABS: Bilirubin,Urine NEG (Negative); Blood,Urine NEG (Negative); Color,Urine Yellow (Yellow); Protein,Urine <15 mg/dL mg/dL (Negative); Urobilinogen,Urine < 2.0 mg/dL (<2.0)
[2022-03-04 05:18] LABS: Mucus,Urine FEW /HPF
[2022-03-04 05:23] LABS: Amphetamine Screen,Urine Negative; Cocaine Screen,Urine Negative; Methadone Screen,Urine Negative; Opiate Screen,Urine Negative
[2022-03-04 06:00] LABS: Benzodiazepines Screen,Urine Positive; Cannabinoid Screen,Urine Positive
[2022-03-04] MEDS: MULTIVITAMINS ,THERAPEUTIC TAB PO SCH (12:03)
--- NOTE | 2022-03-04 16:18 | Event Note ---
Date: 03/04/22 Patient reevaluated today and states he feels okay however really needs to be placed in a crisis unit. Endorses suicidal ideations without a plan.
--- NOTE | 2022-03-04 17:13 | Progress Note ---
Subjective - Reason for Consult Consult date: 03/04/22 Reason for consult: MHE - Chief Complaint Chief complaint: SUBJECTIVE DATE SEEN:03/04/2022 Patient seen today. Patient states that " He is not really well" and complaints of being depressed. Patient states that he got off his medications. patient states that he was taking Lexapro,Trazadone, Gabapentin,and Naproxen. Patient is still observed to be having tremors and is "hoping to get to the crisis center. Patient admits to having SI thoughts with "plan to jump off a building". Patient denies auditory and visual hallucination at this time. SUBJECTIVE DATE SEEN:03/03/2022 Patient seen today in the ER. Patient state that " I don't know how i feel, i just want to get to the crisis center". Patient seen lying on his bed, states that he still having SI thoughts but denies HI at this time. Patient also admits to eating good, but not sleeping good. Patients CIWA as at this interview was 10. Mental Status Exam - Vital signs Last Vital Signs Temp 98.3 F 03/04/22 04:23 Pulse 50 L 03/04/22 04:23 Resp 16 03/04/22 04:23 BP 134/75 03/04/22 04:23 Pulse Ox 96 03/04/22 04:23
[2022-03-04 20:24] VITALS: BP 133/79
[2022-03-04] MEDS: LORazepam 2 MG TAB PO PRN (22:13)
== END 2022-03-05 05:00 ==
LOC: ED 23:39 → EEVIPCON 23:39 → ED 03-05 05:00
DX: F10.129 Alcohol abuse with intoxication, unspecified (principal); R45.851 Suicidal ideations; Z20.822 Contact with and (suspected) exposure to COVID-19; F32.9 Major depressive disorder, single episode, unspecified; F17.290 Nicotine dependence, other tobacco product, uncomplicated; R51.9 Headache, unspecified
CPT/HCPCS: 36415; 70450; 80053; 80307; 81001; 82140; 82962; 83690; 85025; 96361; 96365; 96366; 96372; 96375; 99285; J1630; J2405; J3411; J3490; J7030; J7120; U0003; 80320; 96360; G0480